=== PATIENT | male | born 1995 | race Caucasian/White ===

== ENCOUNTER 2019-10-10 19:49 | Emergency (ER) | payer OTHER, SELFPAY ==
[2019-10-10 20:01] VITALS: BP 133/65; PULSE 77; RESP 20; TEMP 36.9; O2SAT 97; BMI 24.3
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
[2019-10-10 20:43] VITALS: BP 133/65; PULSE 77; RESP 20; TEMP 36.9; O2SAT 97
[2019-10-12 13:24] LABS: Covid-19 Nasal PCR Sendout Lex Not Detected
== END 2019-10-10 20:45 | disposition home or self-care (01) ==
PROVIDERS: Emergency Provider Nurse Practitioner; PCP Nurse Practitioner Family
DX: Z20.828 Contact with and (suspected) exposure to other viral communicable diseases (principal)
CPT/HCPCS: 99201; U0004

== ENCOUNTER 2020-06-18 08:50 | Emergency (ER) | payer OTHER, SELFPAY ==
[2020-06-18 08:52] VITALS: BP 131/80; PULSE 54; RESP 18; TEMP 36.7; O2SAT 99; BMI 24.3
--- NOTE | 2020-06-18 09:03 | PC.NURSE ---
right eye acuity 20/50 left eye acuity 20/50
--- NOTE | 2020-06-18 09:07 | HMH.EDGENADL ---
ED Disposition Clinical Impression: Foreign body of eye, external, right Disposition: Home, Self-Care Condition on Discharge: Good Additional Instructions: Go directly to the optometry office per instructions. Return to the emergency department for worsening pain or any other concerns within the next 1 to 2 days Referrals: Winnie Muhammad [Primary Care Provider] - - Critical Care Critical Care Time: No Attestation: On 06/18/20, the high probability of a clinically significant, sudden or life threatening deterioration of the following system(s) required my full and direct attention, intervention and personal management. The time I documented below is in addition to time spent performing reported procedures but includes the following listed in this critical care notation. Medical Decision Making - Medical Records Medical records reviewed: Yes: I reviewed the patient's medical records. - Feng Inquiry Pt receiving controlled substance: No Vital Signs: 06/18/20 08:52 Temperature 98.1 F Temperature Source Oral Pulse Rate [Left Radial] 54 L Respiratory Rate 18 Blood Pressure [Right Arm] 131/80 Blood Pressure Mean [Right Arm] 97 Blood Pressure Source [Right Arm] Automatic Cuff Blood Pressure Position [Right Arm] Sitting 02 Sat by Pulse Oximetry 99 Oxygen Delivery Method Room Air Medical Decision Narrative: 24-year-old male with metallic foreign body not directly in the visual axis since Tuesday. Forcing him to stay with no Lavon sign no visual acuity changes no concern for globe rupture. No other concern for infection etiology at this time. Pain did improve with topical anesthetic. Discussed case with Dr. Crystal and recommend evaluation at their office as they should be able to handle this. Plan to go directly to the clinic. General Adult HPI - General Chief complaint: Eye Problems Stated complaint: [id number] FO in right eye Time Seen by Provider: 06/18/20 09:00 Mode of Arrival: Ambulatory Limitations: No Limitations Description of Symptoms (Recalled from ER Triage Doc. by RN): c/o right eye pain and redness. Pt states that he thinks he got a piece of metal in his eye on Tuesday night. - History of Present Illness HPI narrative: 24-year-old male presents with metallic foreign body since Tuesday. 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 He says that there is a metallic foreign body to the left of his pupil. The pain is persistent constant sharp in nature worse with blinking. No drainage from his eye. Onset (ago): day(s) (2) Location: eyes Radiation: non-radiation Severity: severe Quality: burning - Related Data Home Medications Medication Instructions Recorded Confirmed No Known Home Medications 03/15/19 03/15/19 Allergies Allergy/AdvReac Type Severity Reaction Status Date / Time No Known Allergies Allergy Verified 07/21/17 22:17 [facility] History - Hepatitis A Screen Drug use history?: No High risk sexual behaviors?: No History of sexually transmitted infection?: No Currently employed?: No Childcare worker?: No Do you have indoor plumbing?: Yes Do you have electricity?: Yes Attestation statement:: This patient has been screened for Hepatitis A risk factors. Medical History: Denies:: Cancer, Diabetes Mellitus Type 1, Diabetes Mellitus Type 2, MRSA Other Surgeries: Yes: No Previous Surgery Amputation: No Fractures: No - Social History Smoking Status: Current every day smoker Tobacco Type: cigarettes # Packs/Day (cigarettes): 1 Alcohol Intake: current Occupational Status: other Family Hx:: Coronary Artery Disease (Brother with multiple PA's at early age), Stroke ROS Obtained: Yes All systems reviewed & no additional complaints - Constitutional Constitutional: Denies body ache, Denies chills, Denies fever(s) - Eyes Eyes: Denies blurry vision, Denies eye disch
--- NOTE | 2020-06-18 09:09 | PC.NURSE ---
Dr Felix speaking with Dr Crystal at [facility]
[2020-06-18 09:22] VITALS: BP 129/69; PULSE 54; RESP 18; TEMP 36.7; O2SAT 99
== END 2020-06-18 09:24 | disposition home or self-care (01) ==
PROVIDERS: Emergency Provider Emergency Medicine; PCP Nurse Practitioner Family
DX: T15.91XA Foreign body on external eye, part unspecified, right eye, initial encounter (principal); F17.210 Nicotine dependence, cigarettes, uncomplicated
CPT/HCPCS: 99281

== ENCOUNTER → 2020-08-04 12:48 | Outpatient (CLI) | payer OTHER, SELFPAY ==
[2020-08-04 12:50] LABS: Microscopic, Urine URINE MICROSCOPIC (MICROSCOPIC)
--- NOTE | 2020-08-04 13:01 | XR_ITS ---
PROCEDURE: XR CHEST 2V CLINICAL HISTORY: tobacco use COMPARISON: CR XR CHEST 2V from 03/15/2019 FINDINGS: The cardiomediastinal silhouette and pulmonary vascularity are within normal limits. The lungs are clear without infiltrates, suspicious nodules, or pleural effusions. Granulomas present in the left upper lobe. No acute bony findings. IMPRESSION: No acute findings. Dictated by: Frandy Flowers MD 08/04/2020 14:25 Frandy Flowers MD in [place] 08/04/2020 14:25
[2020-08-04 13:12] LABS: Appearance,Urine CLEAR (Clear); Bilirubin,Urine Negative (Negative); Blood, Urine Negative (Negative); Color,Urine YELLOW (Yellow); Glucose,Urine (UA) Negative (Negative); Ketones,Urine Negative (Negative); Leukocyte Esterase,Urine Negative (Negative); Nitrate,Urine Negative (Negative); Protein,Urine Negative (Negative)
[2020-08-04 13:18] LABS: Basophils % 0.4 % (0.1-2.0); Eosinophils # 0.1 K/mm3 (0.0-0.4); Eosinophils % 1.2 % (0.1-12.0); Hematocrit 41.6 % (42.0-52.0); Hemoglobin 13.9 g/dL (14.1-18.0); Lymphocytes # 1.9 K/mm3 (0.7-4.5); Lymphocytes % 18.7 % (10-50); Mean Corpuscular HGB Conc 33.4 g/dL (31.8-35.4); Mean Corpuscular Hemoglobin 29.7 pg (27.0-31.2); Mean Corpuscular Volume 88.9 fl (80-94); Mean Platelet Volume 8.1 fl (7.4-10.4); Monocytes # 0.4 K/mm3 (0.1-1.0); Monocytes % 4.1 % (1.7-9.3); Neutrophils # 7.7 K/mm3 (1.8-7.8); Neutrophils % 75.7 % (37.0-80.0); Platelet Count 255 K/mm3 (142-424); Red Blood Count 4.68 M/mm3 (4.60-6.20); Red Cell Distribution Width 12.4 % (11.5-17.5); White Blood Count 10.2 K/mm3 (4.8-10.8)
[2020-08-04 13:20] LABS: Squamous Epithelial Cell,Urine Occasional #/hpf (0-5)
[2020-08-04 13:53] LABS: Alanine Aminotransferase 27 U/L (12-78); Albumin Level 4.5 g/dl (3.5-5.0); Alkaline Phosphatase 53 U/L (38-126); Aspartate Amino Transferase 30 U/L (17-59); Bilirubin,Direct 0.4 mg/dl (0.0-0.4); Bilirubin,Indirect 0.4 mg/dL (0.0-0.9); Bilirubin,Total 0.8 mg/dl (0.2-1.3); Bilirubin,Unconjugated 0.4 mg/dL (0.0-1.1); Blood Urea Nitrogen 8 mg/dl (9-20); Carbon Dioxide 26 mmol/L (22.0-30.0); Chloride 106 mmol/L (98-107); Chol/HDL Ratio 3.3 (1-3.5); Cholesterol 150 mg/dl (140-200); Estimated Glomerular Filt Rate 136 ml/min (>60); GFR (African American) 165 ML/MIN (>60); Glucose 110 mg/dl (74-100); HDL Cholesterol 46 mg/dl (40-60); Sodium 139 mmol/L (136-145); Total Protein,Serum 6.9 g/dl (6.3-8.2); Triglycerides 115 mg/dl (30-150); VLDL Cholesterol 23 mg/dL (0-40)
[2020-08-04 14:04] LABS: Direct LDL Cholesterol 83.51 mg/dL (100-129)
[2020-08-04 14:07] LABS: Free T4 (Free Thyroxine) 1.17 ng/dl (0.78-2.19)
== END ==
PROVIDERS: Visit Provider Internal Medicine
DX: R94.31 Abnormal electrocardiogram [ECG] [EKG] (principal); F17.200 Nicotine dependence, unspecified, uncomplicated; R40.0 Somnolence; Z82.49 Family history of ischemic heart disease and other diseases of the circulatory system
CPT/HCPCS: 36415; 71046; 80048; 80061; 80076; 81001; 84439; 84443; 85025

== ENCOUNTER → 2020-08-13 07:51 | Outpatient (CLI) | payer OTHER, SELFPAY ==
--- NOTE | 2020-08-13 07:52 | CA_ITS ---
APPROVED REPORT Exam: Exercise Treadmill Technologist: mery powers, Ht: 5 ft 7 in Wt: 154 lbs BSA: 1.81 m2 HR: 67 bpm BP: 124/79 mmHg Rhythm: NSR Indications: Abn EKG Stress Test Details Test: Arian HR Resting HR: 73 bpm Max Heart Rate (APMHR): 194.220744 bpm Max HR Achieved: 175 bpm Target HR (85% APMHR): 164.184791 bpm % of APMHR: 90.21 Recovery HR: 99 bpm BP Resting BP: 124/79 mmHg Max BP: 172/68 mmHg Recovery BP: 129.0/78.0 mmHg ECG Clinical Reason for Termination: Completed protocol Exercise duration: 11:43 min Highest Stage Achieved: Exercise capacity: 12.8 METs Stress ECG Conclusion Max HR - 175: %of PM - 90%: Max B/P - 172/68: METs - 12.8; test stopped due to SOA and fatigue. No chest pain No arrhythmias. Normal ST response to exercise. Normal GXT GXT only - no imaging. Test Summary REST . . . . . . . Sitting REST . . . . . . . Standing REST 02:03 0.0 0.0 73 . 124/ 79 . . Stage 1 01:00 10.0 1.7 100 . . . . Stage 1 02:00 10.0 1.7 106 . . . . Stage 1 03:00 10.0 1.7 107 . 130/ 64 . . Stage 2 01:00 12.0 2.5 114 . . . . Stage 2 02:00 12.0 2.5 116 . . . . Stage 2 03:00 12.0 2.5 116 . 152/ 60 . . Stage 3 01:00 14.0 3.4 128 . . . . Stage 3 02:00 14.0 3.4 133 . . . . Stage 3 03:00 14.0 3.4 136 . 160/ 60 . . Stage 4 01:00 16.0 4.2 156 . . . . Stage 4 02:00 16.0 4.2 168 . . . . Stage 4 02:43 16.0 4.2 175 . . . Stop exercise at 11:43 RECOVERY 01:00 0.0 0.0 134 . 172/ 68 . . RECOVERY 02:00 0.0 0.0 104 . 172/ 68 . . RECOVERY 03:00 0.0 0.0 98 . 166/ 80 . . RECOVERY 04:00 0.0 0.0 99 . 152/ 82 . . RECOVERY 05:00 0.0 0.0 99 . 152/ 82 . . RECOVERY 05:48 0.0 0.0 105 . 129/ 78 . . Electronically signed by : Francisco Benz, 08/14/2020 10:17:48
--- NOTE | 2020-08-13 07:52 | CA_ITS ---
APPROVED REPORT EXAM: Comprehensive 2D, Doppler, and color-flow Echocardiogram Cake Wrapper: Krystina Conde RDCS Ht: 5 ft 7 in Wt: 154lbs BSA: 1.81 BP: 132/67 mmHg Indications: ABN EKG, Smoker, Family Hx-CAD 2D Dimensions IVSd 0.91 cm LVEF (Visual) 68.30 % PWd 0.51 cm LA Volume 47.20 mL LVDd 4.77 cm LA Volume Index 26.901028 mL/m2 (M/F) 16-34 LVDs 2.95 cm Aortic Root 2.77 cm Left Atrium 3.24 cm LVOT 2.10 cm (M/F) 1.5-2.5 M-Mode Dimensions RVDd 3.05 cm (0.9-2.6) LA Diam 3.87 cm (1.9-4.0) LVDd 4.55 cm (3.5-5.7) Ao Diam 3.06 cm (2.0-3.7) LVDs 2.75 cm (3.5-5.7) IVSd 0.94 cm (0.6-1.1) PWd 0.77 cm (0.6-1.1) EF (Teich) 66.00% EPSs 0.20 cm FS 36.30% EDV (Teich) 102.90 mL TAPSE 2.04 (<1.7) ESV (Teich) 35.00 mL LV Diastology E Decel Time 170.00 (160-240 msec) E/A Ratio 1.29 MED E' 16.00 (< 7 cm/sec) MED A' 8.40 cm/s E'/MED E' Ratio 4.17 (>14) LAT E' 24.50 (<10 cm/sec) LAT A' 4.80 cm/s E/LAT E' Ratio 2.72 (>14) Pulm Vein s 63.00 cm/sec Pulm Vein d 37.00 cm/sec Ar-A Duration 113.00 msec Aortic Valve LVOT Max 103.00 (70-110 cm/s) LVOT VTI 19.86 cm Mitral Valve MV E Max Vito. 67.00 (40-130 cm/s) MV A Velocity 52.00 (40-130 cm/s) E/A Ratio 1.29 MV Decel. Time 170.00 (160-240 ms) MV PHT 50.00 ms Pulmonary Valve PV Peak Velocity 119.00 (50-150 cm/s) SC End VMAX 145.00 cm/s Tricuspid Valve TR P. Velocity 213.00 cm/s RAP Estimate 10.00 mmHg RVSP 28.10 mmHg Left Ventricle Left atrium is normal size, left ventricle is normal size, there is no concentric left ventricular hypertrophy, visually estimated ejection fraction 55% with no regional wall motion abnormality. Diastolic parameters are within normal range. Right Ventricle Right atrium and right ventricle are normal size and contractility. Aortic Valve Aortic valve is normal, there is no aortic stenosis or aortic insufficiency. Mitral Valve Mitral valve is normal, there is mild mitral regurgitation. Tricuspid Valve Tricuspid grossly normal, there is mild tricuspid regurgitation, calculated right ventricular systolic pressure is within normal range. Pulmonic Valve Pulmonic valve is grossly normal. Great Vessels Aortic root is normal size. Pericardium No significant pericardial effusion noted. Conclusion 1. Normal left ventricular size, preserved left ventricular systolic function, visually estimated ejection fraction 55% with no regional wall motion abnormality, diastolic parameters are within normal range. 2. Mild mitral and tricuspid regurgitation, calculated right ventricular systolic pressure within normal range. 3. No significant pericardial effusion noted, inferior vena cava is normal size with normal inspiratory collapse. Electronically signed by : Francisco Benz, 08/13/2020 11:21:22
== END ==
PROVIDERS: PCP Nurse Practitioner Family; Visit Provider Internal Medicine
DX: R94.31 Abnormal electrocardiogram [ECG] [EKG] (principal); R53.83 Other fatigue; R40.0 Somnolence; Z82.49 Family history of ischemic heart disease and other diseases of the circulatory system
CPT/HCPCS: 93017; 93306

== ENCOUNTER 2023-01-31 23:18 | Emergency (ER) | payer OTHER, SELFPAY ==
[2023-01-31 23:13] VITALS: BP 138/72; BP 138/88; PULSE 76; RESP 20; TEMP 36.9; O2SAT 97
--- NOTE | 2023-01-31 23:13 | PC.NURSE ---
FAST exam negative Dr Man
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
[2023-01-31 23:18] VITALS: BMI 25.0
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
[2023-01-31 23:25] LABS: Basophils % 0.5 % (0.1-2.0); Eosinophils # 0.2 K/mm3 (0.0-0.4); Eosinophils % 2.8 % (0.1-12.0); Hematocrit 45.4 % (42.0-52.0); Hemoglobin 15.3 g/dL (14.1-18.0); Lymphocytes # 2.6 K/mm3 (0.7-4.5); Lymphocytes % 30.7 % (10-50); Mean Corpuscular HGB Conc 33.6 g/dL (31.8-35.4); Mean Corpuscular Hemoglobin 30.8 pg (27.0-31.2); Mean Corpuscular Volume 91.7 fl (80-94); Mean Platelet Volume 8.3 fl (7.4-10.4); Monocytes # 0.5 K/mm3 (0.1-1.0); Monocytes % 5.6 % (1.7-9.3); Neutrophils # 5.1 K/mm3 (1.8-7.8); Neutrophils % 60.4 % (37.0-80.0); Platelet Count 265 K/mm3 (142-424); Red Blood Count 4.96 M/mm3 (4.60-6.20); White Blood Count 8.4 K/mm3 (4.8-10.8)
[2023-01-31 23:32] LABS: Chloride 104 mmol/L (98-107); Potassium 3.6 mmoL/L (3.5-5.1); Sodium 140 mmol/L (136-145)
[2023-01-31 23:34] LABS: Alanine Aminotransferase 34 U/L (12-78); Alkaline Phosphatase 54 U/L (38-126); Aspartate Amino Transferase 36 U/L (17-59); Bilirubin,Total 0.5 mg/dl (0.2-1.3); Blood Urea Nitrogen 12 mg/dl (9-20); Creatinine Clearance Estimated 86 mL/min (50-200); Estimated Glomerular Filt Rate 65 ml/min (>60); GFR (African American) 79 ML/MIN (>60)
[2023-01-31 23:35] LABS: Albumin Level 4.8 g/dl (3.5-5.0); Albumin/Globulin Ratio 1.5 (1.1-1.8); Anion Gap 11.6 mEq/L (5-15); Carbon Dioxide 28 mmol/L (22.0-30.0); Globulin 3.2 g/dL (1.3-3.2); Glucose 98 mg/dl (74-100)
--- NOTE | 2023-01-31 23:52 | PC.NURSE ---
patient back from [facility]
[2023-02-01 00:01] VITALS: BP 129/71; PULSE 79; O2SAT 97
[2023-02-01 00:11] VITALS: BP 129/71; PULSE 75; RESP 20; TEMP 36.9; O2SAT 98
[2023-02-01 00:30] VITALS: BP 119/75; PULSE 78; O2SAT 95
[2023-02-01 00:51] VITALS: BP 119/75; PULSE 78; RESP 20; TEMP 36.9; O2SAT 98
[2023-02-01 01:27] LABS: Ethyl Alcohol < 10 mg/dl (0-10)
[2023-02-07 13:13] LABS: Acetone <.010 g/dL (0.000-0.010); Butalbital <1 ug/mL (1-10); Chlordiazepoxide <0.1 ug/mL (0.1-0.9); Diazepam <0.1 ug/mL (0.1-0.9); Ethanol <.010 g/dL (0.000-0.010); Isopropanol <.010 g/dL (0.000-0.010); Pentobarbital <1 ug/mL (1-5)
== END 2023-02-01 01:07 | disposition home or self-care (01) ==
PROVIDERS: Emergency Provider Emergency Medicine; PCP Nurse Practitioner Family
DX: M54.2 Cervicalgia (principal); S01.81XA Laceration without foreign body of other part of head, initial encounter; S01.511A Laceration without foreign body of lip, initial encounter; S70.312A Abrasion, left thigh, initial encounter; V47.5XXA Car driver injured in collision with fixed or stationary object in traffic accident, initial encounter; Y92.410 Unspecified street and highway as the place of occurrence of the external cause; R79.89 Other specified abnormal findings of blood chemistry; S60.811A Abrasion of right wrist, initial encounter
CPT/HCPCS: 12011; 70450; 70496; 70498; 71045; 71275; 72125; 72128; 72131; 72170; 74174; 80053; 80306; 85025; 90715; 96372; 99285; Q9967

== ENCOUNTER 2024-04-30 15:47 | Emergency (ER) | payer SELFPAY ==
[2024-04-30] VITALS (18 sets, daily range): BP systolic 125–141; BP diastolic 78–96; PULSE 52–87; RESP 11–19; TEMP 36.7; O2SAT 96–100; BMI 25.0
--- NOTE | 2024-04-30 15:47 | XR_ITS ---
PROCEDURE INFORMATION: Exam: XR Left Shoulder Exam date and time: 04/30/2024 4:37 PM Age: 28 years old Clinical indication: Injury or trauma; Fall; Blunt trauma (contusions or hematomas); Shoulder; Left; Additional info: Dislocation TECHNIQUE: Imaging protocol: Radiologic exam of the left shoulder. Views: 2 or more views. COMPARISON: No relevant prior studies available. FINDINGS: Bones/joints: Left shoulder dislocation with anterior inferior displacement of the humeral head in relation to the glenoid fossa. No underlying fracture detected. Remainder of the visualized osseous structures are unremarkable. Soft tissues: Normal. IMPRESSION: Anterior shoulder dislocation.
--- NOTE | 2024-04-30 15:49 | PC.NURSE ---
IV done by EMS TRAFFIC MANAGER, used for blood draw for labs
[2024-04-30] MEDS: KETOROLAC 30MG/ML VIAL 15 MG IV (16:21)
[2024-04-30] MEDS: HYDROMORPHONE 2MG/ML SYRINGE 0.5 MG IV ×2 (16:22→17:40)
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
[2024-04-30 17:09] LABS: HIV Combo NEGATIVE (Negative)
--- NOTE | 2024-04-30 17:31 | PC.NURSE ---
Obtain consent for: conscious sedation reduction of left shoulder reduction d/t displaced. Pt placed on cardiac & hemodynamic monitoring, end tidal CO2 monitoring, Ambu-bag placed at bedside.
--- NOTE | 2024-04-30 17:36 | XR_ITS ---
PROCEDURE INFORMATION: Exam: XR Left Shoulder Exam date and time: 04/30/2024 6:11 PM Age: 28 years old Clinical indication: Other: Post reduction TECHNIQUE: Imaging protocol: Radiologic exam of the left shoulder. Views: 2 or more views. COMPARISON: CR XR SHOULDER LT MIN 2V 04/30/2024 4:37 PM FINDINGS: Bones/joints: Successful reduction of anterior shoulder dislocation with restored anatomic alignment. No underlying fracture detected. Soft tissues: Normal. IMPRESSION: Successful reduction of left shoulder dislocation.
[2024-04-30] MEDS: ONDANSETRON 4MG/2ML VIAL 4 MG IV (17:40)
[2024-04-30 17:41] LABS: Hepatitis C Ab Qual. W/ RFX NEGATIVE (Negative)
== END 2024-04-30 18:51 | disposition home or self-care (01) ==
PROVIDERS: Emergency Provider Emergency Medicine; PCP Nurse Practitioner Family
DX: S43.005A Unspecified dislocation of left shoulder joint, initial encounter (principal); M25.512 Pain in left shoulder; W00.0XXA Fall on same level due to ice and snow, initial encounter
CPT/HCPCS: 23655; 73030; 86803; 87389; 96374; 96375; 96376; 99152; 99284; J1171; J1885; J2405

== ENCOUNTER 2024-05-11 09:17 | Outpatient (CLI) | payer OTHER, SELFPAY ==
--- NOTE | 2024-05-11 09:19 | MR_ITS ---
FINAL REPORT TECHNIQUE: Multiplanar MR without gadolinium enhancement CLINICAL HISTORY: Left Shoulder dislocation COMPARISON: None FINDINGS: Marrow signal: There is bone marrow edema in the posterior humeral head related to a subacute Hill-Sachs injury. There is minimal bone marrow edema in the inferior glenoid. Glenohumeral joint: There is a large glenohumeral joint effusion present. There is a linear loose body measuring up to 12 mm in size in the posterior joint space, that probably originated from the humeral head. Acromioclavicular joint: Unremarkable Rotator cuff apparatus: Intact Labrum: A bony Bankart lesion of the glenoid is present with a tear involving the anterior/inferior labral junction. The superior labrum is intact. Biceps tendon: Intact IMPRESSION: Hill-Sachs and bony Bankart deformities are present post shoulder dislocation with labral tears as described. Linear loose body measuring up to 12 mm in the posterior joint space, probably arising from the humeral head. Reviewed, Interpreted and Dictated by Romi Faustin MD Transcribed by Kyra Mak Authenticated and [facility]
== END 2024-05-11 23:59 | disposition home or self-care (01) ==
LOC: RAD 09:19
PROVIDERS: PCP Nurse Practitioner Family; Visit Provider Physician Assistant Surgical
DX: M25.512 Pain in left shoulder (principal); S43.005A Unspecified dislocation of left shoulder joint, initial encounter
CPT/HCPCS: 73221

== ENCOUNTER 2024-06-11 07:53 | Outpatient (RCR) | payer OTHER, SELFPAY | END 2024-06-11 23:59 | disposition home or self-care (01) | LOC: PT 07:53 | PROVIDERS: Visit Provider Orthopaedic Surgery | DX: Z98.890 Other specified postprocedural states (principal) | CPT/HCPCS: 97014; 97110; 97140; 97163; G0283 ==

== ENCOUNTER 2024-07-09 08:00 | Outpatient (RCR) | payer OTHER, SELFPAY | END 2024-07-09 23:59 | disposition home or self-care (01) | LOC: PT 08:00 | PROVIDERS: Visit Provider Orthopaedic Surgery | DX: Z98.890 Other specified postprocedural states (principal) | CPT/HCPCS: 97014; 97110; 97140; 97164; 97530; G0283 ==

== ENCOUNTER 2024-08-10 08:00 | Outpatient (RCR) | payer OTHER, SELFPAY | END 2024-08-10 23:59 | disposition home or self-care (01) | LOC: PT 08:00 | PROVIDERS: Visit Provider Orthopaedic Surgery | DX: Z47.89 Encounter for other orthopedic aftercare (principal); Z98.890 Other specified postprocedural states | CPT/HCPCS: 97014; 97110; 97140; 97530; G0283 ==